=== PATIENT | male | born 1950 | race Caucasian/White ===

== ENCOUNTER 2017-01-28 09:20 | Day surgery (SDC) | payer OTHER ==
[2017-01-27 16:52] VITALS: BMI 23.9
[~2017-01-28 09:20] MED LIST: ACETAMINOPHEN 325 MG TABLET (FP) PO PRN
[2017-01-28] MEDS ORDERED: TROPICAMIDE 1% OPHTH SOLN 15 ML BOTTLE ONE (09:43)
[2017-01-28] MEDS ORDERED: FLURBIPROFEN 0.03% OPHTH SOLN 2.5 ML BOTTLE ONE (09:43)
[2017-01-28] MEDS ORDERED: CYCLOPENTOLATE HCL 1% OPHTH SOLN 2 ML BOTTLE ONE (09:43)
[2017-01-28] MEDS ORDERED: PHENYLEPHRINE 2.5% OPHTH SOLN 15 ML BOTTLE ONE (09:43)
[2017-01-28] MEDS ORDERED: CIPROFLOXACIN 0.3% EYE DROPS 5 ML BOTTLE ONE (09:43)
[2017-01-28] MEDS: PHENYLEPHRINE 2.5% OPHTH SOLN 15 ML BOTTLE OP SCH ×3 (10:05→10:15)
[2017-01-28] MEDS: TROPICAMIDE 1% OPHTH SOLN 15 ML BOTTLE OP SCH ×3 (10:05→10:15)
[2017-01-28] MEDS: CYCLOPENTOLATE HCL 1% OPHTH SOLN 2 ML BOTTLE OP SCH ×3 (10:05→10:15)
[2017-01-28] MEDS: FLURBIPROFEN 0.03% OPHTH SOLN 2.5 ML BOTTLE OP SCH ×3 (10:05→10:15)
[2017-01-28] MEDS: CIPROFLOXACIN HCL 0.3% OPHTH 2.5ML BOTTLE OP SCH ×3 (10:05→10:15)
[2017-01-28] MEDS ORDERED: BUPIVACAINE HCL/PF 0.75% 10 ML VIAL RB ONE (11:30)
[2017-01-28] MEDS ORDERED: LIDOCAINE HCL/PF 2% SDV 5ML VIAL INF ONE (11:30)
[2017-01-28] MEDS ORDERED: POVIDONE-IODINE 5% OPHTHALMIC PREP 30 ML SOLUTION OS ONE (11:33)
[2017-01-28] MEDS ORDERED: LIDOCAINE HCL 1% PRESERVATIVE FREE - 30ML VIAL IO ONE (11:41)
[2017-01-28] MEDS ORDERED: BSS (NA/CA/MG/K) BALANCED SALT SOLUTION OPHTH SOLN 15 ML BOTTLE OS ONE (11:41)
[2017-01-28] MEDS ORDERED: CHONDROITIN SU A/HYALUR SOD 1 KIT IO ONE (11:41)
[2017-01-28] MEDS ORDERED: EPINEPHrine/PF 1 MG/1 ML (1:1,000) AMPULE IO ONE (11:47)
[2017-01-28 13:08] VITALS: BP 141/74; PULSE 72; TEMP 98.6
--- NOTE | 2017-01-28 13:09 | OP ---
DATE OF OPERATION: DATE OF DICTATION: 01/28/2017 PREOPERATIVE DIAGNOSIS: Cataract, left eye. POSTOPERATIVE DIAGNOSIS: Cataract, left eye. PROCEDURE: Phacoemulsification of left cataract with posterior chamber intraocular lens implantation. LENS USED: [id number], 25.5-diopter power, serial number [id number]. ANESTHESIA: Peribulbar/modified Lint/ MAC. COMPLICATIONS: None. PROCEDURE: The patient was brought to the operating room and correctly identified as well as correct intraocular lens power. He was then given a peribulbar block under sedation with 5 mL of a 1:1 mixture of 2% lidocaine and 0.75% bupivacaine; 2 to 3 mL of the same mixture was given as a modified Lint. The eye was then prepped and draped in the usual sterile fashion including a Betadine solution in the conjunctival sac and an eyelid drape. An eyelid speculum was then placed into the left eye. A paracentesis port was created and intracameral lidocaine was given as well as viscoelastic to inflate the anterior chamber. A temporal clear corneal wound was created. A continuous circular capsulorrhexis was performed. However, during these steps the patient was noted to move and began to complain that the nasal cannula was bothering him. The surgery was halted and the nasal cannula was adjusted multiple times, but despite this, the patient still continued to move. The continuous circular capsulorrhexis was quickly completed, the nucleus hydrodissected with BSS. Phacoemulsification was begun and the patient yet again began to move, complaining of the nasal cannula as well as saying that he had to cough. Despite warnings and despite trying to give the patient more medication for sedation, he still continued to do this. Phacoemulsification was successfully performed quickly via a [id number] approach and the cortical material irrigated and aspirated from the eye. Yet again, the patient began to move. Viscoelastic was injected to inflate the capsular bag and the lens was injected into the capsular bag. Viscoelastic was irrigated and aspirated from the eye. The wounds were tested and found to be watertight, the eye patched and shielded after topical vancomycin given, and the patient discharged from the operating room in a stable condition. MILA LANTIGUA M.D. [id number] MTDD
== END 2017-01-28 13:11 | disposition home or self-care (01) ==
LOC: JASU-SURG 09:20
PROVIDERS: ATTEND Ophthalmology
PROC: 08RK3JZ Replacement of Left Lens with Synthetic Substitute, Percutaneous Approach (ICD-10-PCS; principal; 2017-01-28 11:00)
DX: H26.9 Unspecified cataract (principal)

== ENCOUNTER 2017-09-16 08:09 | Day surgery (SDC) | payer OTHER ==
[2017-09-15 14:12] VITALS: BMI 25.9
[2017-09-16 13:59] VITALS: BP 136/64; PULSE 75; TEMP 98.2
== END 2017-09-16 14:17 | disposition home or self-care (01) ==
LOC: JASU-SURG 08:09
PROVIDERS: ATTEND Ophthalmology
PROC: 08RJ3JZ Replacement of Right Lens with Synthetic Substitute, Percutaneous Approach (ICD-10-PCS; principal; 2017-09-16)
DX: H26.9 Unspecified cataract (principal)
CPT/HCPCS: 94760

== ENCOUNTER 2020-02-02 04:15 | Day surgery (SDC) | payer OTHER ==
[2020-01-31 15:29] VITALS: BMI 24.7
[2020-02-02] MEDS ORDERED: LIDOCAINE HCL 1%, 10 MG/ML (20ML VIAL) ONE (07:15)
[2020-02-02] MEDS ORDERED: MIDAZOLAM HCL 2 MG/2 ML SINGLE DOSE VIAL ONE (07:32)
[2020-02-02] MEDS ORDERED: SUCCINYLCHOLINE CHLORIDE 200 MG/10 ML SYRINGE ONE (07:32)
[2020-02-02] MEDS ORDERED: PROPOFOL 20 ML ONE ×2 (07:32)
[2020-02-02] MEDS ORDERED: DEXAMETHASONE SOD PHOSPHATE 4 MG/1 ML VIAL ONE (08:01)
[2020-02-02] MEDS ORDERED: ceFAZolin SODIUM 1 GM VIAL ONE (08:07)
[2020-02-02] MEDS ORDERED: ceFAZolin SODIUM 1 GM VIAL IVPB ONE (08:15)
[2020-02-02] MEDS ORDERED: ONDANSETRON 4 MG/2 ML VIAL IVPUSH PRN (08:43)
[2020-02-02] MEDS ORDERED: oxyCODONE HCL 5 MG TABLET PO PRN (08:43)
[2020-02-02] MEDS ORDERED: LACTATED RINGERS SOLUTION 1,000 ML IV SCH (08:45)
[2020-02-02] MEDS ORDERED: LABETALOL HCL 5 MG/1 ML (100MG/20 ML VIAL) IVPUSH ONE ×2 (09:15→09:50)
[2020-02-02] MEDS ORDERED: diazePAM CARPU-JECT 10 MG/2 ML DISP.SYRIN IVPUSH ONE ×4 (09:20→10:30)
[2020-02-02] MEDS ORDERED: LABETALOL HCL 5 MG/1 ML (100MG/20 ML VIAL) ONE (09:24)
[2020-02-02] MEDS ORDERED: diazePAM CARPU-JECT 10 MG/2 ML DISP.SYRIN ONE (09:32)
[2020-02-02] MEDS ORDERED: hydrALAZINE HCL 20 MG/ML VIAL ONE (09:46)
[2020-02-02] MEDS ORDERED: hydrALAZINE HCL 20 MG/ML VIAL IVPUSH ONE ×2 (09:50)
[2020-02-02] MEDS ORDERED: oxyCODONE HCL 5 MG TABLET ONE (10:28)
[2020-02-02] MEDS ORDERED: oxyCODONE HCL 5 MG TABLET PO ONE ×2 (10:30→12:02)
[2020-02-02] MEDS ORDERED: ACETAMINOPHEN INJECTION 100 ML IVPB ONE (12:51)
[2020-02-02] MEDS ORDERED: ACETAMINOPHEN 1000 MG/100 ML VIAL (NON FORMULARY) IVPB ONE ×2 (12:55→15:24)
[2020-02-02 15:23] VITALS: BP 150/70; PULSE 84; TEMP 98
--- NOTE | 2020-02-08 16:29 | OP ---
DATE OF OPERATION: 02/02/2020 PREOPERATIVE DIAGNOSIS: Carpal tunnel syndrome right wrist. POSTOPERATIVE DIAGNOSIS: Carpal tunnel syndrome right wrist. SURGEON: Tip Hathaway MD ANESTHESIA: General. PROCEDURE: Carpal tunnel release and fasciotomy. DESCRIPTION OF PROCEDURE: After the induction of general anesthesia and with the tourniquet applied at the proximal aspect of the limb, the entire hand and forearm were now prepped and draped in a free manner. A 3 cm incision was made over the volar aspect of the radiocarpal crease. It was deepened through the subcutaneous tissue. The palmaris longus was identified and retracted and dissection was carried until the carpal ligament now was visualized at the level of the skin incision. Microscopic tunneling was done proximally and distally until the entire ligament now was visualized. An incision was made in the ligament at the level of the skin incision. The median nerve was visualized. The ligament now was incised distally and proximally until the entire median nerve now could be visualized. There was hyperemia covering the nerve and a mild indentation at the level of the carpal ligament. At this point I did not see any need to further do any kind of neurolysis. Hemostasis was obtained and the wound closed in a single layer of 3-0 nylon. A dressing was applied. The tourniquet was deflated. Prompt circulation returned to the fingers. The patient tolerated the procedure and left the operating room in excellent condition. oDrothy [id number]
== END 2020-02-02 15:05 | disposition home or self-care (01) ==
LOC: JASU-SURG 04:15
PROVIDERS: ATTEND Orthopaedic Surgery
PROC: 01N50ZZ Release Median Nerve, Open Approach (ICD-10-PCS; principal; 2020-02-02 08:00)
DX: G56.01 Carpal tunnel syndrome, right upper limb (principal)
CPT/HCPCS: 94760; J0131

== ENCOUNTER 2020-02-03 06:23 | Emergency (ER) | payer OTHER ==
[2020-02-03 06:47] VITALS: BP 167/66; PULSE 66; TEMP 98.4; BMI 23.7
--- NOTE | 2020-02-03 07:09 | PDOC ---
History of Present Illness - General Chief Complaint: Edema Stated Complaint: REVISIT/HAND SWELLING Time Seen by Provider: 02/03/20 07:09 History Source: Patient Exam Limitations: No Limitations - History of Present Illness Initial Comments: 02/03/20 07:29 69M with PMH of HTN and smoking presents to the ED with right wrist pain following carpal tunnel surgery yesterday. He has an appointment with the surgeon, Dr. Hathaway, at 11:00 today, but the pain was not able to be resolved with OTC pain meds and keeping the hand elevated. He reports swelling. Denies fevers/chills, loss of sensation or strength, CP, SOB, nausea, vomiting. PMH: as in HPI SH: see below Meds: Allergies: NKDA Tob/Etoh/Rec drugs: smoker PCP: [facility] GENERAL/CONSTITUTIONAL: No fever or chills. No weakness. HEENT: No change in vision. No ear pain or discharge. CARDIOVASCULAR: No chest pain or shortness of breath RESPIRATORY: No cough, wheezing, or hemoptysis. GASTROINTESTINAL: No nausea, vomiting, diarrhea or constipation. GENITOURINARY: No dysuria, frequency, or change in urination. MUSCULOSKELETAL: +swelling and pain of right wrist. No neck or back pain. SKIN: No rash NEUROLOGIC: No headache, vertigo, loss of consciousness, or change in strength/sensation. ENDOCRINE: No increased thirst. No abnormal weight change HEMATOLOGIC/LYMPHATIC: No anemia, easy bleeding, or history of blood clots. ALLERGIC/IMMUNOLOGIC: No hives or skin allergy. PE GENERAL: Awake, alert, and fully oriented, in no acute distress HEAD: No signs of trauma, normocephalic, atraumatic EYES: PERRLA, EOMI, sclera anicteric, conjunctiva clear ENT: Auricles normal inspection, hearing grossly normal, nares patent, oropharynx clear without exudates. Moist mucosa NECK: Normal ROM, supple, no LAD, JVD, or masses HEART: Regular rate and rhythm, normal S1/S2, no murmurs, rubs or gallops, peripheral pulses normal and equal bilaterally. LUNGS: No distress, speaks full sentences, clear to auscultation bilaterally ABDOMEN: Soft, nontender. No guarding, no rebound. No masses EXTREMITIES: diffuse swelling right wrist/hand, active ROM intact, right radial pulse 2+, cap refill intact, tegaderm patch with sanguinous patch over the anterior aspect of wrist, no erythema NEUROLOGICAL: CNII-XII grossly intact. Normal speech, no focal sensorimotor deficits. Sensation right hand intact. SKIN: Warm, Dry, normal turgor, no rashes or lesions noted Assessment and Plan 1. Pain control - d/c to follow up with ortho, Dr. Mag Victoria, PGY1 Emergency Medicine Past History - Medical History Allergies/Adverse Reactions: Allergies Allergy/AdvReac Type Severity Reaction Status Date / Time No Known Allergies Allergy Verified 02/02/20 07:05 Home Medications: Ambulatory Orders Lisinopril [Prinivil -] 40 mg PO DAILY 01/27/17 Simvastatin 80 mg PO DAILY 01/27/17 Aspirin [Ecotrin] 81 mg PO DAILY 09/15/17 Oxybutynin Chloride [Ditropan Xl] 10 mg PO DAILY 01/31/20 Tamsulosin HCl [Flomax] 0.4 mg PO DAILY 01/31/20 Anemia: No Asthma: No Cancer: No Cardiac Disorders: No CVA: No COPD: No CHF: No Dementia: No Diabetes: Yes (NO MEDS) GI Disorders: Yes Disorders: No HTN: Yes Hypercholesterolemia: Yes Liver Disease: No Seizures: No Thyroid Disease: No - Surgical History Orthopedic Surgery: Yes (CTR LEFT HAND) - Psycho-Social/Smoking History Smoking History: Unknown if ever smoked Have you smoked in the past 12 months: Yes Number of Cigarettes Smoked Daily: 4 'Breaking Loose' booklet given: 09/16/17 - Substance Abuse Hx (Audit-C & DAST Scrn) How often the patient has a drink containing alcohol: Never Score: In Men: 4 or > Positive; In Women: 3 or > Positive: 0 Screen Result (Pos requires Nsg. Audit-10AR): Negative In the last yr the pt used illegal drug/Rx for NonMed reason: No Score: Yes response is considered Positive: 0 Screen Result (Positive result requires Nsg. DAST-10): Negative *Physical Exam - Vital Signs Last Vital Signs Temp Pulse Resp BP Pulse Ox 98.4 F 66 17 167/66 96 02/03/20 06:44 02/03/20 06:44 02/03/20 06:44 02/03/20 06:44 02/03/20 06:44 Medical Decision Making - Medical Decision Making 02/03/20 07:38 69M with PMH of HTN and smoking presents to the ED with right wrist pain and swelling following carpal tunnel surgery yesterday. Exam of right wrist/hand is largely unremarkable except for diffuse swelling, intact neurovascular. No bleeding from the surgical site. Minimal concern for infection. 02/03/20 07:56 Given 1000mg PO tylenol. 02/03/20 08:34 Patient reported improved pain. Swelling appeared to have decreased. The hand/wrist were rewrapped in bandages. He's stable for d/c to follow up with his orthopedic Dr. Hathaway. Discharge - Discharge Information Problems reviewed: Yes Clinical Impression/Diagnosis: Hand pain, right Condition: Stable Disposition: HOME - Admission No - Follow up/Referral - Patient Discharge Instructions Patient Printed Discharge Instructions: DI for Carpal Tunnel Release Additional Instructions: You were seen in the ED for complaints of right wrist and hand pain/swelling after carpal tunnel surgery. In the ED you were evaluated with physical exam. Your right wrist and hand were swollen, but otherwise, medical stable. There does not appear to be an acute need for immediate hospitalization. You are advised to follow up with your orthopedic surgeon, Dr. Hathaway today. Return to the ED immediately if you experience fever/chills, worsening swelling, pus at surgical site. --- Fue visto en el servicio de urgencias por quejas de dolor / hinchazn en la mueca y mano derecha despus de betsy ciruga del [facility]. En el servicio de urgencias te evaluaron con un examen fsico. Banks mueca y mano derecha estaban hinchadas, raina por lo dems, estaban estable desde el punto de vista mdico. No parece roman betsy necesidad aguda de hospitalizacin inmediata. Le recomendamos que ron un seguimiento con banks cirujano ortopdico, el Dr. Mag trevino. Regrese al servicio de urgencias de inmediato si experimenta fiebre / escalofros, empeoramiento de la hinchazn, pus en el sitio de la ciruga. Print Language: DANISH - Post Discharge Activity
[2020-02-03] MEDS ORDERED: ACETAMINOPHEN 500 MG TABLET (FP) PO ONE (07:56)
[2020-02-03] MEDS ORDERED: ACETAMINOPHEN 325 MG TABLET (FP) ONE (08:07)
--- NOTE | 2020-02-03 10:45 | PDOC ---
Attending Attestation - Resident Resident Name: Chris Victoria - ED Attending Attestation I have performed the following: I have examined & evaluated the patient, The case was reviewed & discussed with the resident, I agree w/resident's findings & plan, Exceptions are as noted - HPI HPI: 02/03/20 11:10 Agree with resident HPI - Physicial Exam PE: 02/03/20 11:10 Agree with resident exam - Medical Decision Making 02/03/20 11:10 69-year-old male with carpal tunnel release yesterday presents emergency department with persistent pain despite taking 1 dose of Advil last night. Patient also reporting edema. On exam the patient has edema of the RUE but has FROM of RUE, normal strength and sensation, 2+ radial pulses. Dressing with minimal bleeding on it, wound appears c/d/i w/o erythema Likely post-op edema and pain, pt has f/u in 2 hours with surgeon. He is clinically stable and well-appearing. I discussed the physical exam findings, ancillary test results and final diagnoses with the patient. I answered all of the patient's questions. The patient was satisfied with the care received and felt comfortable with the discharge plan and treatment plan. The patient will call their primary care physician within 24 hours to arrange follow-up and will return to the Emergency Department with any new, persistent or worsening symptoms. Discharge - Discharge Information Problems reviewed: Yes Clinical Impression/Diagnosis: Hand pain, right, Edema of hand, Post-op pain Condition: Stable Disposition: HOME - Follow up/Referral - Patient Discharge Instructions Patient Printed Discharge Instructions: DI for Carpal Tunnel Release Additional Instructions: You were seen in the ED for complaints of right wrist and hand pain/swelling after carpal tunnel surgery. In the ED you were evaluated with physical exam. Your right wrist and hand were swollen, but otherwise, medical stable. There does not appear to be an acute need for immediate hospitalization. You are advised to follow up with your orthopedic surgeon, Dr. Hathaway today. Return to the ED immediately if you experience fever/chills, worsening swelling, pus at surgical site. --- Fue visto en el servicio de urgencias por quejas de dolor / hinchazn en la mueca y mano derecha despus de betsy ciruga del [facility]. En el servicio de urgencias te evaluaron con un examen fsico. Banks mueca y mano derecha estaban hinchadas, raina por lo dems, estaban estable desde el punto de vista mdico. No parece roman betsy necesidad aguda de hospitalizacin inmediata. Le recomendamos que ron un seguimiento con banks cirujano ortopdico, el Dr. Mag trevino. Regrese al servicio de urgencias de inmediato si experimenta fiebre / escalofros, empeoramiento de la hinchazn, pus en el sitio de la ciruga. Print Language: MACEDONIAN - Post Discharge Activity
== END 2020-02-03 08:47 | disposition home or self-care (01) ==
LOC: JER 06:23
DX: M79.641 Pain in right hand (principal)
CPT/HCPCS: 99283-25

== ENCOUNTER 2021-04-11 04:36 | Day surgery (SDC) | payer OTHER ==
[2021-04-10 13:05] VITALS: BMI 25.1
[2021-04-11 14:12] VITALS: TEMP 97.5
[2021-04-11 14:41] VITALS: BP 120/64; PULSE 67
== END 2021-04-11 15:07 | disposition home or self-care (01) ==
LOC: JASU-ENDO 04:36
PROVIDERS: ATTEND Internal Medicine Gastroenterology
PROC: 0DBN8ZX Excision of Sigmoid Colon, Via Natural or Artificial Opening Endoscopic, Diagnostic (ICD-10-PCS; principal; 2021-04-11 14:30)
DX: Z12.11 Encounter for screening for malignant neoplasm of colon (principal); Z86.010 Personal history of colon polyps; D12.5 Benign neoplasm of sigmoid colon; K57.30 Diverticulosis of large intestine without perforation or abscess without bleeding; E11.9 Type 2 diabetes mellitus without complications
CPT/HCPCS: 88305-TC